=== PATIENT | male | born 1950 | race Caucasian/White ===

== ENCOUNTER → 2017-03-24 | Outpatient (CLI) | payer MEDICARE | LOC: EMI 14:33 | DX: M54.2 Cervicalgia (principal); M25.78 Osteophyte, vertebrae; M48.02 Spinal stenosis, cervical region; M99.76 Connective tissue and disc stenosis of intervertebral foramina of lower extremity; E07.9 Disorder of thyroid, unspecified | CPT/HCPCS: 72141 ==

== ENCOUNTER → 2021-02-26 | Outpatient (CLI) | payer OTHER | LOC: RT 15:35 | DX: I10 Essential (primary) hypertension (principal); I45.10 Unspecified right bundle-branch block; R94.31 Abnormal electrocardiogram [ECG] [EKG] | CPT/HCPCS: 93005 ==

== ENCOUNTER → 2021-03-18 | Outpatient (CLI) | payer OTHER | LOC: KOH-I 08:16 | DX: M25.561 Pain in right knee (principal); F43.12 Post-traumatic stress disorder, chronic; Z95.1 Presence of aortocoronary bypass graft; K40.90 Unilateral inguinal hernia, without obstruction or gangrene, not specified as recurrent; R32 Unspecified urinary incontinence; I10 Essential (primary) hypertension; M54.5 Low back pain; E78.2 Mixed hyperlipidemia; E66.9 Obesity, unspecified; G47.33 Obstructive sleep apnea (adult) (pediatric) | CPT/HCPCS: 73564 ==